=== PATIENT | male | born 1980 | race Two or more races ===

== ENCOUNTER 2017-05-31 18:59 | Emergency (ER) | payer SELFPAY ==
[~2017-05-31] VITALS: Ht 154.9 cm; Wt 77.0 kg
[2017-05-31 19:02] VITALS: BP 142/80
== END 2017-05-31 22:45 | disposition home or self-care (01) ==
LOC: ER 18:59
DX: H61.21 Impacted cerumen, right ear (principal); H60.91 Unspecified otitis externa, right ear
CPT/HCPCS: 99283